=== PATIENT | male | born 1965 | race American Indian/Alaskan Native ===

== ENCOUNTER 2019-03-27 08:58 | Outpatient (CLI) | payer MEDICARE, OTHER ==
[2019-03-27 11:03] LABS: Albumin 4.4 g/dL (3.9-5); Chol/HDL Ratio 4.07 %
== END 2019-03-27 08:59 | disposition home or self-care (01) ==
LOC: LAB 08:58
PROVIDERS: ATTEND Internal Medicine
DX: E78.5 Hyperlipidemia, unspecified (principal); E11.9 Type 2 diabetes mellitus without complications; E66.01 Morbid (severe) obesity due to excess calories; E78.00 Pure hypercholesterolemia, unspecified; I10 Essential (primary) hypertension
CPT/HCPCS: 36415; 80053; 80061; 83036

== ENCOUNTER 2019-08-07 08:39 | Outpatient (CLI) | payer MEDICARE, OTHER ==
[2019-08-07 11:06] LABS: Chol/HDL Ratio 4.18 %
== END 2019-08-07 08:40 | disposition home or self-care (01) ==
LOC: LAB 08:39
PROVIDERS: ATTEND Internal Medicine
DX: E11.9 Type 2 diabetes mellitus without complications (principal); E78.5 Hyperlipidemia, unspecified; I10 Essential (primary) hypertension; E78.00 Pure hypercholesterolemia, unspecified; G47.30 Sleep apnea, unspecified; Z87.891 Personal history of nicotine dependence; Z95.818 Presence of other cardiac implants and grafts; Z72.89 Other problems related to lifestyle
CPT/HCPCS: 36415; 80061; 83036

== ENCOUNTER 2020-08-03 16:12 | Outpatient (CLI) | payer MEDICARE, OTHER ==
--- NOTE | 2020-08-03 17:26 | XRay Report ---
CHEST 2 VIEWS INDICATION / CLINICAL INFORMATION: SARCOIDOSIS. COMPARISON: None available. FINDINGS: SUPPORT DEVICES: None. HEART / MEDIASTINUM: No significant abnormality. LUNGS / PLEURA: No significant pulmonary or pleural abnormality. No pneumothorax. ADDITIONAL FINDINGS: No significant additional findings. IMPRESSION: No acute cardiopulmonary abnormality. Signer Name: Jaylan Julien MD Signed: 08/03/2020 5:21 PM Workstation Name: [id number]
== END 2020-08-03 16:13 | disposition home or self-care (01) ==
LOC: XRAY 16:12
PROVIDERS: ATTEND Internal Medicine
DX: D86.9 Sarcoidosis, unspecified (principal)
CPT/HCPCS: 71046

== ENCOUNTER 2021-04-26 08:48 | Outpatient (CLI) | payer MEDICARE, OTHER ==
--- NOTE | 2021-04-26 10:48 | Ultrasound Report ---
ULTRASOUND SCROTUM INDICATION: OTHER SPECIFIED DISORDERS OF THE MALE GENITAL ORGANS. COMPARISON None available. FINDINGS -- RIGHT TESTIS: Size: 4.0 cm. Echotexture: Normal. Color Doppler Flow: Normal. Lesions: None. EPIDIDYMIS: Size: Normal. Echotexture: Normal. Color Doppler Flow: Normal. Lesions: None. Hydrocele: None. Varicocele: None. Additional Findings: None. FINDINGS -- LEFT TESTIS: Size: 3.9 cm. Echotexture: Normal. Color Doppler Flow: Normal. Lesions: None. EPIDIDYMIS: Size: Normal. Echotexture: Normal. Color Doppler Flow: Normal. Lesions: None. Hydrocele: None. Varicocele: None. Additional Findings: None. IMPRESSION: 1. No sonographic abnormality of the scrotum. Signer Name: Danial García MD Signed: 04/26/2021 10:43 AM Workstation Name: [id number]
== END 2021-04-26 08:49 | disposition home or self-care (01) ==
LOC: US 08:48
PROVIDERS: ATTEND Internal Medicine
DX: N50.89 Other specified disorders of the male genital organs (principal)
CPT/HCPCS: 93975

== ENCOUNTER 2022-02-07 12:41 | Outpatient (CLI) | payer MEDICARE, OTHER ==
[2022-02-07 13:59] LABS: Hemoglobin 11.2 gm/dl (11.8-15.2); Mean Corpuscular HGB Conc 32 % (32-34); Mean Corpuscular Volume 71 fl (84-94); Red Blood Count 4.91 M/mm3 (3.65-5.03)
[2022-02-07 14:00] LABS: Platelet Count 92 K/mm3 (140-440)
[2022-02-07 14:02] LABS: Alanine Aminotransferase 17 units/L (7-56); Albumin 4.3 g/dL (3.9-5); BUN/Creatinine Ratio 15; Blood Urea Nitrogen 17 mg/dL (9-20); Calcium 10.1 mg/dL (8.4-10.2); Chol/HDL Ratio 3.86 %; HDL Cholesterol 43 mg/dL (40-59); Hemolysis Index 12; LDL Cholesterol,Direct 108 mg/dL (50-130)
[2022-02-07 14:24] LABS: Bilirubin,Urine NEG (Negative); Blood,Urine NEG (Negative); Color,Urine Yellow (Yellow); Mucus,Urine FEW /HPF; Protein,Urine <15 mg/dL mg/dL (Negative); Urobilinogen,Urine < 2.0 mg/dL (<2.0)
== END 2022-02-07 12:42 | disposition home or self-care (01) ==
LOC: LAB 12:41
PROVIDERS: ATTEND Internal Medicine
DX: E11.65 Type 2 diabetes mellitus with hyperglycemia (principal); E78.5 Hyperlipidemia, unspecified; E55.9 Vitamin D deficiency, unspecified; I10 Essential (primary) hypertension; R94.5 Abnormal results of liver function studies; Z00.00 Encounter for general adult medical examination without abnormal findings
CPT/HCPCS: 36415; 80053; 80061; 81001; 83036; 84443; 85025